=== PATIENT | female | born 1960 | race Caucasian/White ===

== ENCOUNTER → 2018-12-19 08:09 | Outpatient (CLI) | payer OTHER, SELFPAY ==
[2018-12-19 10:37] LABS: Cholesterol 226 mg/dL (200); Glucose 93 mg/dL (74-106); High Density Lipoprotein 73 mg/dL; Triglycerides 46 mg/dL; Very Low Density Lipoprotein 9 mg/dL (5-40)
== END ==
DX: Z13.220 Encounter for screening for lipoid disorders (principal); Z13.89 Encounter for screening for other disorder
CPT/HCPCS: 36415; 80061; 82947

== ENCOUNTER → 2020-01-13 07:00 | Outpatient (CLI) | payer OTHER, SELFPAY ==
[2020-01-13 10:35] LABS: Cholesterol 238 mg/dL (200); Glucose 94 mg/dL (74-106); High Density Lipoprotein 76 mg/dL; Triglycerides 57 mg/dL; Very Low Density Lipoprotein 11 mg/dL (5-40)
== END ==
DX: Z02.1 Encounter for pre-employment examination (principal)
CPT/HCPCS: 36415; 80061; 82947

== ENCOUNTER 2020-03-25 18:00 | Inpatient (IN) | payer OTHER, SELFPAY ==
[2020-03-25 18:00] VITALS: BP 154/80; PULSE 75; RESP 16; TEMP 36.4; O2SAT 99; BMI 28.5
[2020-03-25 18:26] LABS: Absolute Lymphocyte Count 1.96 X10^3/uL (0.83-4.51); Absolute Neutrophil Count 8.5 X10^3/uL (2.0-7.7); Basophil# 0.04 X10^3/uL; Basophil% 0.4 % (0-1); Eosinophil# 0.11 X10^3/uL; Hemoglobin 13.4 g/dL (12.0-15.0); Lymphocyte # 1.96 X10^3/ul (4.0); Lymphocyte % 17.3 % (19-41); Mean Corp Hgb Conc 31.2 g/dL (32-36); Mean Corpuscular Hgb 28.6 pg (27.0-32.0); Mean Corpuscular Volume 91.7 fL (81-99); Mean Platelet Vol. 9.2 fl (6.2-12.0); Monocyte# 0.68 X10^3/uL; NRBC Flagged by Analyzer 0 % (0-5); Neutrophil # 8.51 X10^3/uL (2.7-7.7); Platelet Count 246 K/mm3 (150-450); RBC Distribution Width CV 12.9 % (11.6-14.6); RBC Distribution Width SD 43.3 fl (35.1-43.9); Red Blood Count 4.69 M/mm3 (4.2-5.4); White Blood Count 11.3 K/mm3 (4.4-11.0)
[2020-03-25 18:39] LABS: Anion Gap 5 (5-15); BUN 18 mg/dL (7-18); BUN/Creat Ratio 22.4 RATIO (10-20); Calcium,Total 9.6 mg/dL (8.5-10.1); Chloride 107 mmol/L (98-107); EST Glomerular Filtration Rate 78 mL/min (>60); Est Glom Filt Rate - Afr Amer 94 mL/min (>60); Estimated Creatinine Clearance 75.45 ml/min; Glucose 92 mg/dL (74-106); Potassium 4.1 mmol/L (3.5-5.1); Sodium Level 140 mmol/L (136-145)
--- NOTE | 2020-03-25 19:17 | ED.VIS.GEN ---
History of Present Illness Chief Complaint: Abd Pain Informant: Patient Onset: Yesterday Context: Gradual Onset Current Severity: Moderate Maximum Severity: Moderate Narrative: Patient present secondary to right lower quadrant pain. She states she developed right lower quadrant pain yesterday. It was still present when she woke this morning and is somewhat worsened throughout the day. She was able to eat lunch but had decreased p.o. appetite. No fevers or chills. No pain with urination or with bowel movement. Past Medical History - Allergies and Home Meds Allergies/Adverse Reactions: Allergies No Known Allergies Allergy (Verified 03/25/20 18:02) Primary Care Physician: Care Physician,No Primary [Primary Care Provider] - Past Medical History: None Surgical History: - - Breast implants Lives: With Family Review of Systems General: Denies: Chills, Fever Eyes: Denies: Visual changes - bilaterally ENT: Denies: Bilateral ear pain Cardiovascular: Denies: Chest pain Respiratory: Denies: Dyspnea, Cough Gastrointestinal: Reports: Abdominal pain. Denies: Vomiting, Diarrhea Genitourinary: Denies: Dysuria, Frequency Musculoskeletal: Denies: Swelling, Extremity Pain Skin: Denies: Rash Neurological: Denies: Headache Hematologic: Denies: Easy bruising, Easy bleeding Allergy: Denies: Uticaria Physical Exam Vital Signs/Narrative: Vital Signs Temp Pulse Resp BP Pulse Ox 03/25/20 18:00 97.5 F L 75 16 154/80 H 99 Inital Vital Signs reviewed: Yes General: Well nourished, Well developed ENT: Moist mucous membranes Neck: Supple Cardiovascular: Regular rate, Regular rhythm Respiratory: No distress, CTA bilaterally Abdomen: Soft, Tender - Moderate tenderness to the right lower quadrant., Rebound tenderness, Hypoactive bowel sounds Skin: Normal color Neurological: Alert, Oriented x3 Psychological: Normal affect Diagnostic/Tx/Re-eval Impressions Abdomen/Pelvis CT 03/25/20 20:15 IMPRESSION: 1. Acute appendicitis, no perforation or abscess. 2. Pectus excavatum sternal deformity. Electronically Signed: Oma Kearney MD at 20:34 EST Tel , Service support , 03/25/20 20:15 CT Abd [Abdomen/Pelvis WITH Contrast] [CT] Stat Laboratory Results 03/25/20 03/25/20 03/25/20 18:20 18:20 19:58 WBC 11.3 H RBC 4.69 Hgb 13.4 Hct 43.0 MCV 91.7 MCH 28.6 MCHC 31.2 L RDW Std Deviation 43.3 RDW Coeff of Hedy 12.9 Plt Count 246 MPV 9.2 Immature Gran % (Auto) 0.300 Neut % (Auto) 75.0 H Lymph % (Auto) 17.3 L [place] % (Auto) 6.0 Eos % (Auto) 1.0 Baso % (Auto) 0.4 Absolute Neuts (auto) 8.5 H Absolute Lymphs (auto) 1.96 Nucleated RBC % 0 Sodium 140 Potassium 4.1 Chloride 107 Carbon Dioxide 28.0 Anion Gap 5 BUN 18 Creatinine 0.80 Estim Creat Clear Calc 75.45 Est GFR (MDRD) Af Amer 94 Est GFR (MDRD) Non-Af 78 BUN/Creatinine Ratio 22.4 H Glucose 92 Calcium 9.6 Urine Color Yellow Urine Clarity Clear Urine pH 6.5 Ur Specific [place] 1.010 Urine Protein Negative Urine Glucose (UA) Normal Urine Ketones Negative Urine Occult Blood Negative Urine Nitrite Negative Urine Bilirubin Negative Urine Urobilinogen Normal Ur Leukocyte Esterase 25 H Urine RBC 0 SEEN Urine WBC 0-5 SEEN Ur Squamous Epith Cells 0-5 SEEN Urine Bacteria 0 SEEN Urine Mucus 0 SEEN - Medical Decision Making Patient was given morphine, Zofran, and IV fluids. On repeat evaluation she states pain had been significantly improved but was now worsening again. She is given another dose of morphine. Blood work shows a mildly elevated white count. CT scan does confirm appendicitis. Test results discussed with patient and at bedside. Dose of Zosyn is ordered and rapid Covid test. I will speak with surgery. ED Disposition - Plan for ED Patient: Disposition: Acute Care Hospital [facility] Diagnosis: Appendicitis Referrals: Care Physician,No Primary [Primary Care Provider] -
[2020-03-25] MEDS: Ondansetron 4 MG/2 ML Vial IV (19:22)
[2020-03-25] MEDS: Morphine 4 MG/ML Syringe IV ×2 (19:22→21:31)
[2020-03-25 20:01] LABS: Bacteria 0 SEEN /hpf (None Seen); Mucous, Urine 0 SEEN /hpf (<or=2+); Red Blood Cells-Urine 0 SEEN /hpf (0-5)
[2020-03-25 20:04] VITALS: BP 129/80; PULSE 69; RESP 16; O2SAT 99
[2020-03-25 20:04] LABS: Color, Urine Yellow (Yellow); Glucose, Dipstick Normal (Normal); Ketone-Dipstick Negative (Negative); Leukocyte Esterase-Dipstick 25 /ul (Negative); Nitrite-Dipstick Negative (Negative); Occult Blood-Urine Negative /ul (Negative); Protein-Dipstick Negative (Negative); Urine Bilirubin Dipstick Negative (Negative); Urine Clarity Clear (Clear); Urine Urobilinogen Normal (Normal); Urine pH 6.5 (5.0 - 8.0)
[2020-03-25] MEDS: 0.9% Normal Saline 1,000 ML 150 ML IV (20:05)
[2020-03-25 20:14] LABS: Squamous Epithelial Cells - UA 0-5 SEEN /hpf (5-10); White Blood Cells 0-5 SEEN /hpf (0-5)
--- NOTE | 2020-03-25 20:15 | CT_ITS ---
STUDY: CT ABDOMEN AND PELVIS WITH CONTRAST REASON FOR EXAM: Female, 59 years old. Right lower quadrant pain RADIATION DOSAGE (If Supplied By Facility): CTDIvol = ( 19.25 ) mGy, DLP = ( 995.37 ) mGycm TECHNIQUE: CT images were obtained from the dome of the diaphragm to the symphysis pubis without oral contrast. Oral and amp; IV Gastrografin and amp; 100mL Isovue-300 was administered. Sagittal and coronal images were reconstructed. Individualized dose optimization techniques were used for this CT. COMPARISON: None. FINDINGS: The visualized lung bases are unremarkable. The visualized portions of the heart are within normal limits. Normal liver. Normal gallbladder and extrahepatic biliary system. Normal spleen. Normal pancreas. Normal bilateral adrenal glands. Normal right kidney. Normal left kidney. There is no intestinal obstruction. Appendix is inflamed without perforation or abscess. Normal abdominal aorta. Normal inferior vena cava. Normal retroperitoneum. Normal urinary bladder. Normal abdominal wall. There is pectus excavatum. There are bilateral breast prostheses. CT/Abdomen/Pelvis WITH Contrast IMPRESSION: 1. Acute appendicitis, no perforation or abscess. 2. Pectus excavatum sternal deformity. Electronically Signed: Oma Kearney MD at 20:34 EST Tel , Service support ,
[2020-03-25 21:06] VITALS: BP 137/79; PULSE 75; RESP 16; O2SAT 95
[2020-03-25 21:39] VITALS: BP 116/82; PULSE 75; RESP 18; TEMP 36.2; O2SAT 98; BMI 28.5
[2020-03-25 21:52] VITALS: BP 116/82; PULSE 75; RESP 18; TEMP 36.2; O2SAT 98
--- NOTE | 2020-03-25 21:53 | PCM.CONS.GEN ---
Problem List (1) Appendicitis Status: Acute Qualifiers: Appendicitis type: acute appendicitis Acute appendicitis type: with localized peritonitis Appendicitis gangrene presence: without gangrene Appendicitis perforation presence: without perforation Appendicitis abscess presence: without abscess Qualified Code(s): K35.30 - Acute appendicitis with localized peritonitis, without perforation or gangrene Reason for Consult Date of Consultation: 03/25/20 History of Present Illness: The patient is a 59 year old F Patient present secondary to right lower quadrant pain. She states she developed right lower quadrant pain yesterday. It was still present when she woke this morning and is somewhat worsened throughout the day. She was able to eat lunch but had decreased p.o. appetite. No fevers or chills. No pain with urination or with bowel movement. Past Medical History Allergies No Known Allergies Allergy (Verified 03/25/20 18:02) Home Medications: Ambulatory Orders Medication Instructions Recorded NK 03/25/20 Surgical History: - - Breast implants Lives: With Family Smoking Status: Never smoker - *Family History Maternal History Items: No pertinent history Review of Systems Constitutional: Reports: Anorexia Cardiovascular: Denies: Chest Pain, Chest Pressure, Chest Tightness, Palpitations Respiratory: Denies: Cough, Hemoptysis, Shortness of breath at rest, Shortness of breath upon exertion, Wheezing Gastrointestinal: Reports: Abdominal Pain, Nausea. Denies: Constipation, Diarrhea, Melena, Vomiting Genitourinary: Denies: Dysuria, Frequency, Hematuria, Urgency Patient Problems: Active and Suspected Problems Appendicitis (Acute) - Physical Exam Vitals/I&O's: Vital Signs Temp Pulse Resp BP Pulse Ox 97.1 F L 75 18 116/82 H 98 03/25/20 21:52 03/25/20 21:52 03/25/20 21:52 03/25/20 21:52 03/25/20 21:52 Oxygen Delivery Method Room Air Weight: 182 lb Body Mass Index (BMI) 28.5 General: Alert, Oriented x3 Lungs: Clear to auscultation Cardiovascular: Regular rate, Regular Rhythm, No murmurs Abdomen: Bowel Sounds Present, Soft, Non-Distended, Tender - Pain is located at McBurney's point. She does have positive Rovsing sign and positive heeltap. Extremities: No clubbing, No cyanosis, No edema Laboratory Results 03/25/20 18:20: WBC 11.3 H, RBC 4.69, Hgb 13.4, Hct 43.0, MCV 91.7, MCH 28.6, MCHC 31.2 L, RDW Std Deviation 43.3, RDW Coeff of Hedy 12.9, Plt Count 246, MPV 9.2, Immature Gran % (Auto) 0.300, Neut % (Auto) 75.0 H, Lymph % (Auto) 17.3 L, [place] % (Auto) 6.0, Eos % (Auto) 1.0, Baso % (Auto) 0.4, Absolute Neuts (auto) 8.5 H, Absolute Lymphs (auto) 1.96, Nucleated RBC % 0 03/25/20 18:20: Sodium 140, Potassium 4.1, Chloride 107, Carbon Dioxide 28.0, Anion Gap 5, BUN 18, Creatinine 0.80, Estim Creat Clear Calc 75.45, Est GFR (MDRD) Af Amer 94, Est GFR (MDRD) Non-Af 78, BUN/Creatinine Ratio 22.4 H, Glucose 92, Calcium 9.6 03/25/20 19:58: Urine Color Yellow, Urine Clarity Clear, Urine pH 6.5, Ur Specific [place] 1.010, Urine Protein Negative, Urine Glucose (UA) Normal, Urine Ketones Negative, Urine Occult Blood Negative, Urine Nitrite Negative, Urine Bilirubin Negative, Urine Urobilinogen Normal, Ur Leukocyte Esterase 25 H, Urine RBC 0 SEEN, Urine WBC 0-5 SEEN, Ur Squamous Epith Cells 0-5 SEEN, Urine Bacteria 0 SEEN, Urine Mucus 0 SEEN Current Medications Sodium Chloride () 1,000 mls @ 150 mls/hr IV .[id number] [facility] Last Admin: 03/25/20 20:05 Dose: 150 mls/hr Documented by: Assessment/Plan All Active Problems Appendicitis (Acute) Plan will be to perform a laparoscopic appendectomy on the patient. Risk benefits to include bleeding infection possible delayed abscess possible need for further surgeries. Patient also understands heart attack pneumonia strokes up to and including are possibilities although extremely low in her age group with negative comorbidities. All questions asked were answered and she is willing to proceed. Office Visits / Consults: [id number] IP Consult L4 - Modifier 57
--- NOTE | 2020-03-25 22:08 | PCM.OPRPT ---
Problem List (1) Appendicitis Status: Acute Qualifiers: Appendicitis type: acute appendicitis Acute appendicitis type: with localized peritonitis Appendicitis gangrene presence: without gangrene Appendicitis perforation presence: without perforation Appendicitis abscess presence: without abscess Qualified Code(s): K35.30 - Acute appendicitis with localized peritonitis, without perforation or gangrene (2) Meckel diverticulum Status: Acute Report of Operation Date of Procedure: 03/25/20 Pre-Operative Diagnosis: Acute appendicitis Post-Operative Diagnosis: Same. Plus Meckel's diverticulum Surgery/Procedure Performed:: Laparoscopic appendectomy. Laparoscopic Meckel's diverticulectomy Type of Anesthesia:: General Anesthesiologist: Delia Cain Specimen's removed: Appendix plus Meckel's diverticulum Description of Procedure: Patient was brought into the operating room. Placed in the supine position. Under excellent general endotracheal ovation the abdomen was sterilely prepped and draped in the usual fashion. Local was injected infraumbilically. Dissection was carried down to the fascia. The fascia was grasped with a Tata. Varies needle was placed inside the abdomen. The abdomen was insufflated 15 torr. A 10/12 trocar was placed out difficulty. Patient was placed in the headdown and rotated to the left position. Suprapubic #5 trocar was placed, left lower quadrant #5 trocar was placed, all these under direct visualization without injury to underlying structures. Patient was noted to have acute appendicitis. Came down on the mesoappendix with the Enseal I then transected the base of the appendix with a 45 linear cutter. I placed a specimen specimen bag and delivered through the umbilical port without difficulty. I irrigated the right lower quadrant and pelvis area out good hemostasis was noted. I then ran the small bowel. I was surprised to find a Meckel's diverticulum that was located within the foot of the terminal ileum. It had a mesentery going up on it and it was the appendage that measured approximately 3 cm from the normal small bowel. I took this mesentery that was creeping along the small bowel off with the Enseal. And I transected the Meckel's diverticulum with a 45 linear cutter doing my best to do transverse and not longitudinal on the small bowel. I used touch cautery on the staple line I had excellent hemostasis and I did not narrow the small bowel. I irrigated out the area I had good pneumostasis. I remove the trochars under direct visualization. Good mistakes was noted. The fascia the umbilical port with a [id number] stitch of 0 Vicryl. Skin incisions were closed with subcuticular stitches of 4-0 Monocryl. Steri-Strips were applied sterile dressings were applied and the patient tolerated the procedure well. - Admit VTE Documentation VTE Present on Admission: No VTE Mechan Device Prophylaxis: SCD's VTE Pharm Prophylaxis ordered?: No Reason prophylaxis not ordered:: Treatment Not Indicated
--- NOTE | 2020-03-25 22:30 | APP_PTH ---
PATIENT: ARLETTE BUSCH LOC: MS3 U#:[id number] AGE/SX: 59/F ROOM: MS311 RE03/25/[address]: Dr. Lawson Odom MD : 1960 BED: 1 DIS: 03/26/2020 SPEC #: [id number] RECD: 03/28/20 07:01 STATUS: NATASHA RETanya #: [id number] ADILSON: 03/25/20 22:[address]: Lawson Odom DEPT: SURGICAL PATHOLOGY RECD BY: Katerina Escalona ENTERED: 03/28/20 09:59 SP TYPE: APPENDIX OTHR DR: Lauren Primary Care Phys Tissues: A - Appendix, NOS B - MECKEL'S DIVERTICULUM Procedures: Surgery Specimen Level III HEADER OPERATION: Laparoscopic appendectomy, laparoscopic Meckel's diverticulum PRE-OP DIAGNOSIS: Appendicitis TISSUE SUBMITTED: A - Appendix, B - Meckel's diverticulum MICROSCOPIC DIAGNOSIS A. Appendix, appendectomy: Early acute appendicitis. B. Meckel's diverticulum, excision: Consistent with Meckel's diverticulum. Segment of small bowel with no pathologic change. AM:андрей 03/29/2020 MICROSCOPIC DESCRIPTION Slides are reviewed. GROSS DESCRIPTION A - Received in fixative is one container labeled with the patient's name and designated appendix. The specimen consists of an appendix measuring 7.5 cm in length and up to 0.5 to 1 cm in diameter. The attached periappendiceal adipose tissue measures up to 2 cm in width. The serosa is mildly congested. No obvious perforation is identified. The lumen contains fecal material. No fecalith is identified. Control Systems Developer sections are submitted in one cassette. B - Received in fixative is one container labeled with the patient's name and designated Meckel's diverticulum. The specimen consists of a piece of bowel tissue with one end stapled consistent with blind diverticulum measuring 2.5 cm in length and 2.5 cm in diameter. The resection margin is stapled. Attached soft tissue measures 2 cm in width. A small amount of fecal material is noted in the diverticulm. Sections do not reveal any mass lesion. The entire diverticulum is submitted in five cassettes as follows: 1 - resection margin, 2-5 - rest of the specimen (5 contains the diverticulum). / STEFANI:андрей 03/28/20 TC:5 CPT: 19250 x2
--- NOTE | 2020-03-25 22:44 | ED.RN ---
called report to OR.
[2020-03-25] MEDS: Bupivacaine Mpf 0.5% 30 ML VIAL (23:00)
[2020-03-26] VITALS (10 sets, daily range): BP systolic 102–129; BP diastolic 64–76; PULSE 64–88; RESP 14–20; TEMP 35.7–36.9; O2SAT 93–97; BMI 29.7; BMI 29.8
[2020-03-26] MEDS: 0.9% Normal Saline 1,000 ML 75 ML IV (01:32)
[2020-03-26] MEDS: HYDROmorphone 0.5 MG/0.5 ML SYRINGE IV (01:33)
--- NOTE | 2020-03-26 09:38 | PN.SURG_ITS ---
Patient Problems: Active and Suspected Problems Appendicitis (Acute) Meckel diverticulum (Acute) Subjective: Patient states she feels much better than she did yesterday. She does not have any flatus as of yet but she is not nauseated and she has not been having any vomiting. Objective: Abdomen is soft dressings are dry. - Physical Exam Vitals/I&O's: Vital Signs Temp Pulse Resp BP Pulse Ox 97.6 F L 88 20 H 124/70 H 95 03/26/20 04:45 03/26/20 04:45 03/26/20 04:45 03/26/20 04:45 03/26/20 04:45 Oxygen Delivery Method Room Air Weight: 190 lb Body Mass Index (BMI) 29.7 Intake and Output for Last 24 Hours 03/24/20 03/25/20 03/26/20 23:59 23:59 23:59 Intake Total 1050 / 1050 150.25 / 150.25 Output Total 400 / 400 Balance 1050 / 1050 -249.75 / -249.75 Microbiology Past 72 Hours 03/25/20 21:30 Mucosa - Nose SARS-CoV-2 Antigen (Rapid) - Final Laboratory Results 03/25/20 18:20: WBC 11.3 H, RBC 4.69, Hgb 13.4, Hct 43.0, MCV 91.7, MCH 28.6, MCHC 31.2 L, RDW Std Deviation 43.3, RDW Coeff of Hedy 12.9, Plt Count 246, MPV 9.2, Immature Gran % (Auto) 0.300, Neut % (Auto) 75.0 H, Lymph % (Auto) 17.3 L, Day % (Auto) 6.0, Eos % (Auto) 1.0, Baso % (Auto) 0.4, Absolute Neuts (auto) 8.5 H, Absolute Lymphs (auto) 1.96, Nucleated RBC % 0 03/25/20 18:20: Sodium 140, Potassium 4.1, Chloride 107, Carbon Dioxide 28.0, Anion Gap 5, BUN 18, Creatinine 0.80, Estim Creat Clear Calc 75.45, Est GFR (MDRD) Af Amer 94, Est GFR (MDRD) Non-Af 78, BUN/Creatinine Ratio 22.4 H, Glucose 92, Calcium 9.6 03/25/20 19:58: Urine Color Yellow, Urine Clarity Clear, Urine pH 6.5, Ur Specific [place] 1.010, Urine Protein Negative, Urine Glucose (UA) Normal, Urine Ketones Negative, Urine Occult Blood Negative, Urine Nitrite Negative, Urine Bilirubin Negative, Urine Urobilinogen Normal, Ur Leukocyte Esterase 25 H, Urine RBC 0 SEEN, Urine WBC 0-5 SEEN, Ur Squamous Epith Cells 0-5 SEEN, Urine Bacteria 0 SEEN, Urine Mucus 0 SEEN Current Medications Hydromorphone HCl (Hydromorphone 0.5 Mg/0.5 Ml Syringe) 0.5 - 1 mg IV Q2H PRN PRN PRN Reason: Pain Score 1-10 Last Admin: 03/26/20 01:33 Dose: 0.5 mg Documented by: Hydromorphone HCl (Hydromorphone 1 Mg/Ml Syringe) 0.5 - 1 mg IV Q2H PRN PRN PRN Reason: Pain Score 1-10 Sodium Chloride () 1,000 mls @ 75 mls/hr IV .[id number] [facility] Last Admin: 03/26/20 01:32 Dose: 75 mls/hr Documented by: Piperacillin Sod/Tazobactam (Sod 3.375 gm/ Sodium Chloride) 50 mls @ 12.5 mls/hr IV Q8 [facility] Last Admin: 03/26/20 05:56 Dose: 12.5 mls/hr Documented by: Sodium Chloride () 250 mls @ 15 mls/hr IV .[id number] PRN PRN Reason: Saline Flush Last Infusion: 03/26/20 06:06 Dose: 0 mls/hr Documented by: Oxycodone HCl (Oxycodone 5 Mg Tablet) 5 - 10 mg PO Q4H PRN PRN PRN Reason: Pain Score 1-10 Sodium Chloride (0.9% Saline Lock 10 Ml Syringe) 10 - 40 ml IV UD PRN PRN Reason: SALINE FLUSH Medical Necessity - Tobacco Use Smoking Status: Never smoker Assessment/Plan All Active Problems Appendicitis (Acute) Meckel diverticulum (Acute) Would like to see her passing gas and if this is the case should be able to go home. Prefer that she be on a pur?ed type of diet for at least a week. Also instructed her that she needs to watch out for any nausea or vomiting and give me a call if any of that develops. We talked briefly about possibly having delayed infections either from a leak from the appendiceal stump or leak from where I transected the Meckel's diverticulum.
--- NOTE | 2020-03-26 09:40 | DCINST_ITS ---
Discharge Diet: Light diet - advance as tolerated - if you have questions about your diet instructions, please talk to you doctor. Discharge Activity: May Not Drive - for 3-5 days or while taking narcotic pain meds. May shower in (days): 1 Call your doctor if your incision/area has: Continuous Slow Oozing, Sudden Increased Bleeding, Increased Pain/ Swelling, Increased Redness, Foul Smelling Discharge Call your doctor if you observe: Fever of 101 or Higher Suture Line Care: Avoid Pulling/Pushing, Avoid Pinching/Bending Additional Dressing/Incision Instructions:: Keep dressing clean and dry. Change or remove dressing in 2 days. Leave steri strips for 1 week. May protect with a gauze bandaid. Medications to take at Discharge Oxycodone HCl/Acetaminophen [Percocet 5/325] 1 - 2 tab PO Q4H PRN PRN 6 Days #30 tab 03/25/20 Allergies/Adverse Reactions: Allergies No Known Allergies Allergy (Verified 03/25/20 18:02) The following prescriptions were given: Oxycodone HCl/Acetaminophen [Percocet 5/325] 1 - 2 tab PO Q4H PRN PRN 6 Days #30 tab PRN Reason: Pain Transmission Status: Received by SAMPSON BLEVINS-[address] [facility] Primary Care Physician: Care Physician,No Primary [Primary Care Provider] - Test Results: Test results from this visit will be discussed in further detail at your follow- up appointment, if applicable. Please Follow Up With: Heike Marie, [place] - [phone] When: Call to make a follow up appointment with your doctor in 1 week.
[2020-03-26] MEDS: oxyCODONE 5 MG Tablet PO (09:49)
== END 2020-03-26 11:28 | disposition home or self-care (01) | DRG 343 ==
LOC: ED 21:26 → SDC 21:36 → MS3 03-29 09:29
PROVIDERS: Admitting Provider Surgery; Emergency Provider Emergency Medicine; Referring Provider Surgery; Visit Provider Surgery
PROC: 0DTJ4ZZ Resection of Appendix, Percutaneous Endoscopic Approach (ICD-10-PCS; CPT 44970; principal; 2020-03-25 22:30)
DX: K35.30 Acute appendicitis with localized peritonitis, without perforation or gangrene (principal); Q43.0 Meckel's diverticulum (displaced) (hypertrophic); Z20.822 Contact with and (suspected) exposure to COVID-19; Z98.82 Breast implant status
CPT/HCPCS: 74177; 80048; 81001; 85025; 87426; 88304; 96361; 96365; 96366; 96375; 96376; 99218; 99284; J7030; J7050; J7120; Q9967; A4216; C1760; G0378; J2405

== ENCOUNTER → 2021-01-03 09:57 | Outpatient (CLI) | payer OTHER, SELFPAY ==
[2021-01-03 12:50] LABS: Cholesterol 283 mg/dL (200); Glucose 108 mg/dL (74-106); High Density Lipoprotein 83 mg/dL; Triglycerides 72 mg/dL; Very Low Density Lipoprotein 14 mg/dL (5-40)
== END ==
DX: Z02.1 Encounter for pre-employment examination (principal)
CPT/HCPCS: 36415; 80061; 82947

== ENCOUNTER → 2021-12-19 | Outpatient (CLI) | payer OTHER, SELFPAY ==
[2021-12-19 10:39] LABS: Cholesterol 261 mg/dL (200); Glucose 110 mg/dL (74-106); High Density Lipoprotein 82 mg/dL; Triglycerides 63 mg/dL; Very Low Density Lipoprotein 13 mg/dL (5-40)
== END | disposition home or self-care (01) ==
LOC: MTLAB 07:18
DX: Z02.9 Encounter for administrative examinations, unspecified (principal); Z13.220 Encounter for screening for lipoid disorders
CPT/HCPCS: 36415; 80061; 82947

== ENCOUNTER → 2022-04-30 | Outpatient (CLI) | payer OTHER, SELFPAY ==
[2022-05-03 19:57] LABS: Cotinine Screen Blood <1.0 ng/mL (.); Nicotine Blood <1.0 ng/mL (.)
== END | disposition home or self-care (01) ==
LOC: MTLAB 16:24
DX: Z13.89 Encounter for screening for other disorder (principal)
CPT/HCPCS: 36415; 80323; G0480

== ENCOUNTER → 2023-01-01 | Outpatient (CLI) | payer OTHER, SELFPAY ==
[2023-01-01 10:47] LABS: Cholesterol 272 mg/dL (200); Glucose 107 mg/dL (74-106); High Density Lipoprotein 71 mg/dL; Triglycerides 61 mg/dL; Very Low Density Lipoprotein 12 mg/dL (5-40)
== END | disposition home or self-care (01) ==
LOC: MTLAB 07:11
DX: Z00.00 Encounter for general adult medical examination without abnormal findings (principal); Z13.220 Encounter for screening for lipoid disorders
CPT/HCPCS: 36415; 80061; 82947

== ENCOUNTER → 2023-04-02 | Outpatient (CLI) | payer OTHER, SELFPAY ==
[2023-04-08 14:08] LABS: Cotinine Screen Blood <1.0 ng/mL (.); Nicotine Blood <1.0 ng/mL (.)
== END | disposition home or self-care (01) ==
LOC: MTLAB 15:21
DX: Z02.1 Encounter for pre-employment examination (principal)
CPT/HCPCS: 36415; 80323; G0480